=== PATIENT | male | born 1990 | race Caucasian/White ===

== ENCOUNTER 2021-11-28 12:11 | Emergency (ER) | payer SELFPAY ==
[2021-11-28 12:37] VITALS: BP 106/76; PULSE 80; TEMP 98; BMI 30.7
== END 2021-11-28 13:10 | disposition home or self-care (01) ==
LOC: JERFT 12:11
DX: L02.211 Cutaneous abscess of abdominal wall (principal)
CPT/HCPCS: 99281-25

== ENCOUNTER 2021-11-29 23:16 | Emergency (ER) | payer SELFPAY ==
[2021-11-29 23:24] VITALS: BP 142/81; PULSE 84; TEMP 98; BMI 30.7
[2021-11-30] MEDS ORDERED: IBUPROFEN 400 MG TABLET (FP) PO ONE ×2 (00:12→00:14)
[2021-11-30] MEDS ORDERED: AMOX TR/POT CLAV 875MG/125MG TABLETS (FP) PO ONE (00:17)
[2021-11-30] MEDS ORDERED: AMOX TR/POT CLAV 875MG/125MG TABLETS (FP) ONE (00:20)
== END 2021-11-30 00:22 | disposition home or self-care (01) ==
LOC: JER 23:16
DX: L03.116 Cellulitis of left lower limb (principal)
CPT/HCPCS: 99283-25